=== PATIENT | female | born 1990 | race Two or more races ===

== ENCOUNTER → 2024-02-01 | Outpatient (CLI) | payer OTHER, SELFPAY ==
[2024-02-01 16:45] LABS: Glucose Estimated Average 123 mg/dL (80-131); Hemoglobin A1C 5.9 % Hgb (4.8-6.0)
[2024-02-10 06:22] LABS: DHEA Sulfate* 97 mcg/dL (23-266); Progesterone,LC/MS* 7.8 ng/mL
== END | disposition home or self-care (01) ==
LOC: COPL 15:49
PROVIDERS: Referring Provider Specialist; Visit Provider Specialist
DX: N93.9 Abnormal uterine and vaginal bleeding, unspecified (principal)
CPT/HCPCS: 36415; 82627; 83036; 84144

== ENCOUNTER → 2024-08-23 | Outpatient (CLI) | payer OTHER, SELFPAY ==
[2024-08-23 09:40] LABS: Basophils # (Auto) 0.0 Thou/mm3 (0.0-0.2); Basophils % (Auto) 0 % (0-2.5); Eosinophils # (Auto) 0.2 Thou/mm3 (0.0-0.5); Eosinophils % (Auto) 3 % (0-10); Hematocrit 35.7 % (36.0-46.0); Hemoglobin 10.3 g/dL (12.0-16.0); Immature Granulocytes Auto 0.02 Thou/mm3 (0.00-0.00); Lymphocytes # (Auto) 1.9 Thou/mm3 (1.0-4.8); Lymphocytes % (Auto) 21 % (10-50); Mean Corpuscular HGB Conc 28.9 g/dl (31.0-37.0); Mean Corpuscular Hemoglobin 19.6 pg (25.0-35.0); Mean Corpuscular Volume 68 fL (80-100); Monocytes # (Auto) 0.5 Thou/mm3 (0.0-0.8); Monocytes % (Auto) 6 % (0-12); Neutrophils # (Auto) 6.3 Thou/mm3 (1.8-7.7); Neutrophils % (Auto) 70 % (37-80); Nucleated Red Blood Cell # 0.00 Thou/mm3 (0.00-0.00); Nucleated Red Blood Cell % 0 /100 WBC (0); Platelet Count 198 Thou/mm3 (140-440); RDW Standard Deviation 42.2 fL (36.4-46.3); Red Blood Count 5.25 Miln/mm3 (4.00-5.20); White Blood Count 9.0 Thou/mm3 (3.6-11.0)
[2024-08-23 09:54] LABS: Glucose Estimated Average 128 mg/dL (80-131); Hemoglobin A1C 6.1 % Hgb (4.8-6.0)
[2024-08-23 09:57] LABS: Alanine Aminotransferase 13 U/L (10-49); Albumin, Serum 4.3 gm/dL (3.5-5.0); Albumin/Globulin Ratio 1.6 (1.2-2.2); Alkaline Phosphatase 63 U/L (46-116); Anion Gap 5 (7-16); Aspartate Amino Transferase 13 U/L (0-34); BUN/Creatinine Ratio 11 Ratio (12-20); Bilirubin,Total 0.5 mg/dL (0.3-1.2); Blood Urea Nitrogen 9 mg/dL (9-23); Calcium 8.7 mg/dL (8.3-10.6); Calcium (Corrected) 8.7 mg/dL (8.5-10.1); Carbon Dioxide 29.2 mMol/L (20.0-31.0); Cardiac Risk Estimate 3.3 RATIO (3.7-5.6); Chloride 109 mMol/L (98-107); Cholesterol 180 mg/dL (132-200); Creatinine (Component) 0.8 mg/dL (0.6-1.3); Free T4 (Free Thyroxine) 1.10 ng/dL (0.89-1.76); Globulin 2.7 gm/dL (2.3-3.5); Glucose 114 mg/dL (74-106); HDL Cholesterol 55 mg/dL (40-60); LDL Cholesterol,Calculated 112 mg/dL (0-130); Osmolality,Calculated 284 (275-295); Potassium 4.0 mMol/L (3.4-5.1); Sodium 143 mMol/L (136-145); Thyroid Stimulating Hormone 1.38 uIU/mL (0.55-4.78); Total Protein 7.0 gm/dL (5.7-8.2); Triglycerides 64 mg/dL (30-150); eGFR > 60 See Note
[2024-08-23 09:57] LABS: Creatinine MALB Rnd Ur 226 mg/dL (30-125); Microalbumin Creat Ratio 6 mg/gCrea (<30); Microalbumin, Random Urine 14 mg/L (0-300)
[2024-08-23 10:22] LABS: Syphilis Nonreactive (Nonreactive)
[2024-08-23 10:31] LABS: Follicle Stimulating Hormone 4.23 mIU/mL (See Note); Hepatitis A Antibody IgM Non Reactive (Non React); Hepatitis B Core Antibody IgM Non Reactive (Non React); Hepatitis B Surface Antigen Non Reactive (Non React); Hepatitis C Antibody Non Reactive (Non React); Vitamin D 25 Hydroxy Total 25.4 ng/mL (7.3-40.2)
[2024-08-23 15:48] LABS: Chlamydia trachomatis PCR Negative (Not Detect); Neisseria Gonorrhoeae DNA PCR Negative (Not Detect); Trichomonas Negative (Negative)
[2024-08-29 06:46] LABS: DHEA Sulfate* 99 mcg/dL (23-266); HIV Ag/Ab, 4th Gen NON-REACTIVE; Luteinizing Hormone* 5.1 mIU/mL; Prolactin* 6.6 ng/mL
== END | disposition home or self-care (01) ==
LOC: COPL 08:28
PROVIDERS: PCP Internal Medicine; Referring Provider Physician Assistant; Visit Provider Physician Assistant
DX: N92.1 Excessive and frequent menstruation with irregular cycle (principal); R53.83 Other fatigue; Z13.1 Encounter for screening for diabetes mellitus; Z13.220 Encounter for screening for lipoid disorders; Z13.29 Encounter for screening for other suspected endocrine disorder; Z86.39 Personal history of other endocrine, nutritional and metabolic disease; Z11.3 Encounter for screening for infections with a predominantly sexual mode of transmission
CPT/HCPCS: 36415; 80053; 80061; 80074; 82043; 82306; 82570; 82627; 83001; 83002; 83036; 84146; 84439; 84443; 85025; 86780; 87389; 87491; 87591; 87661

== ENCOUNTER → 2024-10-31 | Outpatient (CLI) | payer OTHER, SELFPAY ==
--- NOTE | 2024-10-31 13:30 | XR_ITS ---
Examination: Pelvic ultrasound, transabdominal, complete Technique: Transabdominal ultrasound of the pelvis performed using grayscale imaging Date and time of exam: October 31, 2024 1323 hours INDICATIONS: Pelvic pain beginning 19 months ago FINDINGS: Uterus 11.9 cm, fluid in the endometrium fundal region No intrauterine gestation No discrete uterine solid mass Endometrial stripe 1.1 cm Right ovary 2.9 cm arterial flow. Left ovary 4.4 cm arterial flow 4.0 x 3.2 x 4.4 cm mixed echogenic mass in the left adnexal region with vascularity IMPRESSION: Left adnexal vascular mass 4.0 x 3.2 x 4.4 cm, differential would include endometrioma, left ovarian tumor Recommend MRI pelvis follow-up pre and post intravenous contrast
== END | disposition home or self-care (01) ==
LOC: CDIM 13:08
PROVIDERS: PCP Physician Assistant; Referring Provider Physician Assistant; Visit Provider Physician Assistant
DX: R19.09 Other intra-abdominal and pelvic swelling, mass and lump (principal)
CPT/HCPCS: 76856

== ENCOUNTER → 2024-11-15 | Outpatient (CLI) | payer OTHER, SELFPAY ==
[2024-11-14 14:54] LABS: Anion Gap 7 (7-16); BUN/Creatinine Ratio 13 Ratio (12-20); Blood Urea Nitrogen 10 mg/dL (9-23); Calcium 9.2 mg/dL (8.3-10.6); Carbon Dioxide 29.2 mMol/L (20.0-31.0); Chloride 109 mMol/L (98-107); Creatinine (Component) 0.8 mg/dL (0.6-1.3); Glucose 96 mg/dL (74-106); Osmolality,Calculated 287 (275-295); Potassium 4.2 mMol/L (3.4-5.1); Sodium 145 mMol/L (136-145); eGFR > 60 See Note
[2024-11-14 16:17] LABS: HCG Qualitative,Urine Negative
--- NOTE | 2024-11-15 12:30 | XR_ITS ---
Examination: MRI pelvis with intravenous contrast. MRI pelvis without intravenous contrast. Date and time of exam: November 15, 2024, 1255 hours INDICATIONS: Pelvic pain and tenderness pelvic bleeding since March 2023, pelvic sonogram 10/31/2024 left adnexal vascular mass 4.0 x 4.4 cm Technique: Multiple axial, sagittal and coronal sections of the pelvis obtained. Transverse images, TR 6020, TE 107. T1 weighted transverse images, TR 582, TE 9.5. T2-weighted sagittal images, TR 4000, TE 105. T2-weighted sagittal images, TR 4000, TE 5. Coronal images, TR 4210, TE 107. Axial and coronal images are obtained post 20 cc intravenous injection, gadolinium. Findings: Anteverted uterus, 11 x 4.2 x 4.6 cm Endometrial stripe is not dilated Postcontrast imaging demonstrates no abnormal enhancing uterine mass Right ovary 3.0 x 2.8 cm small follicular cysts Left ovary 4.0 x 4.2 cm follicular cysts, the largest 14 mm No current left ovarian mass IMPRESSION: No current left ovarian mass Recommend follow-up pelvic sonography with the radiologist in attendance
== END | disposition home or self-care (01) ==
LOC: SMRI 12:20
PROVIDERS: PCP Nurse Practitioner Primary Care; Referring Provider Nurse Practitioner Primary Care; Visit Provider Nurse Practitioner Primary Care
DX: N94.89 Other specified conditions associated with female genital organs and menstrual cycle (principal); Z32.00 Encounter for pregnancy test, result unknown
CPT/HCPCS: 36415; 72197; 80048; 81025; A9577